=== PATIENT | male | born 1995 | race Caucasian/White ===

== ENCOUNTER 2021-02-24 17:58 | Inpatient (IN) | payer OTHER ==
[~2021-02-24] VITALS: Ht 190.5 cm; Wt 83.9 kg
[2021-02-24 19:18] LABS: HEMOGLOBIN 15.1 gm/dl (14.0-17.5); RED BLOOD COUNT 4.36 M/UL (4.20-5.50); WHITE BLOOD COUNT 6.1 K/UL (4.5-11.0)
[2021-02-24 19:38] LABS: BUN/CREATININE RATIO 8 (0-10)
[2021-02-25 04:34] LABS: HEMOGLOBIN 14.7 gm/dl (14.0-17.5); RED BLOOD COUNT 4.31 M/UL (4.20-5.50)
[2021-02-25 04:38] LABS: WHITE BLOOD COUNT 9.2 K/UL (4.5-11.0)
[2021-02-25 04:58] LABS: BUN/CREATININE RATIO 7 (0-10)
--- NOTE | 2021-02-25 19:48 | NUR ---
1340 PT ARRIVED TO FLOOR FROM ER. ADMITTED TO ROOM 5130 ADMITTED WITH PANCREASITIS. NS INFUSING UPON ARRIVAL. SEE PART 2 OF ASSESSMENT
[2021-02-26 04:11] LABS: BUN/CREATININE RATIO 4 (0-10)
--- NOTE | 2021-02-27 05:24 | NUR ---
About 2300 pt called out complaining that his arm swelled up where his IV is and then went back down. I flushed the IV and it flushes well with no swelling or complaints of pain. Pt ask that I unhook the fluids since he is taking in clear liquids with no abd pain or nausea/vomiting.
--- NOTE | 2021-02-27 05:28 | NUR ---
at 0230 pt rang out and ask that I remove the IV states his arm is hurting. I flushed the IV with no complications or complaints. Removed the IV and tried to start a new one. Pt refused, education on why we normally need IV accessed until discharge. Pt refused to have another IV. No swelling, redness, or infiltration noted. Dr. Mccormick notified.
[2021-02-27 05:41] LABS: BUN/CREATININE RATIO 4 (0-10)
[2021-02-27] MEDS ORDERED: HYDRALAZINE HCL25 MG PO (11:32)
[2021-02-27] MEDS ORDERED: PHOS-NAK PACKET1 EA PO (11:32)
[2021-02-27] MEDS ORDERED: HYDROCODON-ACE1 EAC4 PO (11:32)
[2021-02-27] MEDS ORDERED: VITAMIN B-1100 M1 PO (11:32)
[2021-02-27] MEDS ORDERED: TAB-A-VITE TA400 MC1 PO (11:32)
[2021-02-27] MEDS ORDERED: PROTONIX 40 MG40 M1 PO (11:32)
[2021-02-27] MEDS ORDERED: ZOFRAN 4 MG TAB4 MG PO (12:37)
== END 2021-02-27 13:54 | disposition home or self-care (01) | DRG 439 ==
LOC: ER1 17:58 → CDU 21:30 → M/S 02-25 15:53
PROVIDERS: Emergency Medicine; Physician Assistant; ADMIT Internal Medicine
PROC: HZ2ZZZZ Detoxification Services for Substance Abuse Treatment (ICD-10-PCS; principal; 2021-02-24)
DX: K85.20 Alcohol induced acute pancreatitis without necrosis or infection (principal); E87.2 Acidosis; K70.10 Alcoholic hepatitis without ascites; E87.6 Hypokalemia; E83.42 Hypomagnesemia; E83.39 Other disorders of phosphorus metabolism; F12.10 Cannabis abuse, uncomplicated; F17.200 Nicotine dependence, unspecified, uncomplicated; F10.10 Alcohol abuse, uncomplicated; Z82.49 Family history of ischemic heart disease and other diseases of the circulatory system; Z20.822 Contact with and (suspected) exposure to COVID-19
CPT/HCPCS: 36415; 76700; 80053; 80061; 80307; 81001; 82550; 82553; 82607; 82746; 83036; 83605; 83690; 83735; 84100; 84132; 84478; 84484; 85025; 85652; 86140; 87040; 87086; 96374; 96375; 96376; 99285; G0480; J0360; J1170; J1650; J1885; J2270; J2405; J3475; J3480; J7030; J7120; Q9967; U0002